=== PATIENT | female | born 1990 | race American Indian/Alaskan Native ===

== ENCOUNTER 2016-07-28 21:30 | Emergency (ER) | payer OTHER ==
[2016-07-28 22:04] VITALS: BP 104/71
[2016-07-29] MEDS ORDERED: TYLENOL ONE (00:25)
[2016-07-29] MEDS ORDERED: TYLENOL PO ONE (00:31)
== END 2016-07-29 02:58 | disposition left against medical advice (07) ==
LOC: ED 21:30
DX: M54.5 Low back pain (principal); M54.2 Cervicalgia; V49.49XA Driver injured in collision with other motor vehicles in traffic accident, initial encounter; Z53.21 Procedure and treatment not carried out due to patient leaving prior to being seen by health care provider

== ENCOUNTER 2016-11-27 14:51 | Emergency (ER) | payer SELFPAY ==
[2016-11-27 16:48] VITALS: BP 126/70
[2016-11-27 17:35] LABS: Basophils % (Auto) 0.5 % (0.0-1.8); Hematocrit 38.6 % (30.3-42.9); Hemoglobin 12.8 gm/dl (10.1-14.3); Mean Corpuscular HGB Conc 33 % (30-34); Mean Corpuscular Hemoglobin 28 pg (28-32); Mean Corpuscular Volume 86 fl (79-97); Platelet Count 258 K/mm3 (140-440); White Blood Count 6.6 K/mm3 (4.5-11.0)
[2016-11-27 17:41] LABS: Urine Drugs of Abuse Note Disclamer
[2016-11-27 18:01] LABS: Bilirubin,Urine SM (Negative); Blood,Urine NEG (Negative); Ketones,Urine NEG (Negative); Leukocyte Esterase,Urine SM (Negative); Mucus,Urine 3+ /HPF; Nitrite,Urine NEG (Negative)
== END 2016-11-27 17:39 | disposition left against medical advice (07) ==
LOC: EEVIPCON 14:51 → ED 14:51
DX: Z53.21 Procedure and treatment not carried out due to patient leaving prior to being seen by health care provider (principal)
CPT/HCPCS: 36415; 80307; 81001; 84703; 85025; G0480; 80320

== ENCOUNTER 2019-01-28 16:24 | Emergency (ER) | payer SELFPAY ==
[2019-01-28 19:49] VITALS: BP 124/87
--- NOTE | 2019-01-28 19:49 | Emergency Department Report ---
Chief Complaint: Dental/Oral Stated Complaint: LFT SIDE TOOTHACHE/PAIN Time Seen by Provider: 01/28/19 19:44 - HPI History of Present Illness: This is a 28 y.o. F. that presents to the ER with left sided lower dental pain for 1.5 weeks. Patient states she went to [facility] and told they can't pull tooth until the infection is resolved. Patient reports increasing pain with eating or movement of her mouth. States there is drainage from the abscess at #30 where her tooth broke. Reports appointment with [facility] on next Wednesday. Denies any fever, chills, headache, nausea, vomiting, chest pain or SOB. - ROS Review of Systems: ROS: Stated complaint: dental pain Other details as noted in HPI Constitutional: chills, fever ENT: dental pain. denies: ear pain, throat pain, and congestion Respiratory: denies: shortness of breath, SOB with exertion, wheezing, cough. Cardiovascular: denies: palpitations, chest pain Gastrointestinal: denies: abdominal pain, nausea, diarrhea Musculoskeletal: denies: back pain, joint swelling, arthralgia Skin: denies: rash, lesions Neurological: denies: headache, weakness, paresthesias Psychiatric: denies: anxiety, depression - Exam Vital Signs: Vital Signs 01/28/19 19:47 Temperature 98.5 F Pulse Rate 103 H Respiratory 18 Rate Blood Pressure 124/87 [Left] O2 Sat by Pulse 99 Oximetry Physical Exam: General: Vital signs noted. No distress. Alert and acting appropriately. HEENT: #30 gingival swelling, partial tooth, tenderness, Yes Moist Mucous Membranes, No Rhinorrhea, No pharynx Erythema (uvula midline), No Pharyngeal Exudates, No Conjuctival Injection, No Frontal Tenderness, No Maxillary Tenderness Ear: Neither TM Bulge, Neither TM Erythema, Neither EAC Pain, Neither EAC Discharge, Neither Cerumen Impaction Neck: Yes Supple, No Adenopathy Lungs: Yes Good Air Exchange, No Wheezes, No Ronchi, No Stridor, No Cough, No Labored Respirations, No Retractions, No Use of Accessory Muscles, No Other Abnormal Lung Sounds Heart: Yes Regular, No Murmur Abdomen: Yes Normal Bowel Sounds, No Tenderness, No Peritoneal Signs Skin: No Rash, No Eczema Neurologic: Alert and oriented, no deficits. MSE screening note: Focused history and physical exam performed. Due to findings the following was ordered: ED Medical Decision Making - Medical Decision Making Patient is stable and examined by me. Vitals are normal. No significant past medical history. No signs of distress noted. Tooth #30 is fractured with gingival swelling, and tenderness. However, the patient has normal vital signs. No palpated abscess or cyst pockets on exam. Start antibiotics, tramadol, and magic mouthwash. Instructed to keep dentist appointment next week for continued care. Patient informed of ER plan of care and agree with the plan. Instructed to follow-up with primary care doctor in 2-3 days or return to the emergency room with worsening symptoms. ED Disposition for MSE Clinical Impression: Toothache Fractured tooth Qualifiers: Encounter type: initial encounter Fracture type: closed Qualified Code(s): S02.5XXA - Fracture of tooth (traumatic), initial encounter for closed fracture Disposition: TO HOME OR SELFCARE Is pt being admited?: No Condition: Stable Instructions: Dental Caries (ED), Toothache (ED) Additional Instructions: Complete antibiotics as prescribed. Take pain medication every 6-8 hours as needed. Follow up with a dentist. Follow-up with a primary care doctor in 3-5 days or if symptoms worsen and continue return to the emergency department as soon as possible. Prescriptions: Nystas/Diphen/Xyl Visc/Mylanta [Magic Mouthwash] 15 ml MM Q4H #100 ml Amoxicillin [Trimox CAP] 500 mg PO Q8H #21 capsule traMADoL [Ultram 50 MG tab] 50 mg PO Q6HR PRN #12 tablet PRN Reason: Pain Referrals: [facility] [Outside] - 3-5 Days [facility] [Outside] - 3-[address] [facility] [Outside] - 3-5 Days Time of Disposition: 19:51
== END 2019-01-28 19:51 | disposition home or self-care (01) ==
LOC: ED 16:24
DX: S02.5XXA Fracture of tooth (traumatic), initial encounter for closed fracture (principal); Z91.040 Latex allergy status; Z91.018 Allergy to other foods; Z88.8 Allergy status to other drugs, medicaments and biological substances; X58.XXXA Exposure to other specified factors, initial encounter; Y93.89 Activity, other specified; Y92.89 Other specified places as the place of occurrence of the external cause; Y99.8 Other external cause status
CPT/HCPCS: 99282